=== PATIENT | male | born 1950 | race Caucasian/White ===

== ENCOUNTER 2022-01-13 21:50 | Emergency (ER) | payer MEDICARE, OTHER ==
[2022-01-13] MEDS ORDERED: hydrALAZINE 20 MG/ML SDV IM STA (22:26)
[2022-01-13] MEDS ORDERED: cloNIDine 0.1 MG Tab PO STA (23:29)
[2022-01-13] MEDS ORDERED: amLODIPine 10 MG Tab PO STA (23:29)
[2022-01-13] MEDS ORDERED: Ondansetron 4 MG Tab.DIS PO STA (23:38)
[2022-01-13] MEDS ORDERED: Carvedilol 3.125 MG Tab PO ONE (23:56)
[2022-01-14] MEDS ORDERED: LORazepam 0.5 MG Tab PO STA (00:24)
== END 2022-01-14 01:10 | disposition home or self-care (01) ==
LOC: FB.ED 21:50
DX: I12.0 Hypertensive chronic kidney disease with stage 5 chronic kidney disease or end stage renal disease (principal); N18.6 End stage renal disease; D63.1 Anemia in chronic kidney disease; E78.00 Pure hypercholesterolemia, unspecified; Z79.82 Long term (current) use of aspirin; Z79.899 Other long term (current) drug therapy; Z99.2 Dependence on renal dialysis
CPT/HCPCS: 36415; 80053; 85025; 96372; 99283; 99284; A9270-GY; J0360; Q0162

== ENCOUNTER 2022-05-12 19:39 | Emergency (ER) | payer MEDICARE, OTHER ==
[2022-05-12] MEDS ORDERED: Sodium Chloride 0.9% 10 ML Syringe FLUSH PRN (20:19)
[2022-05-12 20:44] LABS: ESTIMATED GFR 14 mL/min (>60)
[2022-05-12] MEDS ORDERED: Sodium Chloride 0.9% 1,000 ML IV SCH (21:45)
== END 2022-05-12 23:30 ==
LOC: FB.ED 19:39
DX: R55 Syncope and collapse (principal); I13.2 Hypertensive heart and chronic kidney disease with heart failure and with stage 5 chronic kidney disease, or end stage renal disease; I50.9 Heart failure, unspecified; N18.6 End stage renal disease; E86.0 Dehydration; Z79.899 Other long term (current) drug therapy; Z79.82 Long term (current) use of aspirin; Z20.822 Contact with and (suspected) exposure to COVID-19
CPT/HCPCS: 70450; 71045; 80053; 83880; 84484; 85025; 93005; 96360; 99285; J7030; U0002

== ENCOUNTER 2023-10-08 23:57 | Emergency (ER) | payer OTHER, MEDICARE ==
[2023-10-09] MEDS ORDERED: Sodium Chloride 0.9% 1,000 ML IV SCH (00:15)
[2023-10-09 00:31] LABS: BASOPHILS ABSOLUTE AUTO 0.1 x10-3/uL (0.0-0.3); EOSINOPHILS ABSOLUTE AUTO 0.3 x10-3/uL (0.0-0.6); EOSINOPHILS PERCENT AUTO 6.4 % (0.1-6.8); HEMATOCRIT 24.8 % (38.3-50.1); HEMOGLOBIN 8.5 g/dL (12.9-17.7); LYMPHOCYTES ABSOLUTE AUTO 1.7 x10-3/uL (0.5-4.5); LYMPHOCYTES PERCENT AUTO 34.2 % (15.8-45.3); MEAN CORPUSCULAR HEMOGLOBIN 34.4 pg (27.0-33.3); MEAN CORPUSCULAR HGB CONC 34.5 g/dL (28.7-35.3); MEAN CORPUSCULAR VOLUME 99.6 fL (80.8-98.7); MEAN PLATELET VOLUME 8.7 fL (6.7-11.0); MONOCYTES ABSOLUTE AUTO 0.7 x10-3/uL (0.0-1.2); MONOCYTES PERCENT AUTO 14.2 % (5.5-15.2); NEUTROPHILS ABSOLUTE AUTO 2.2 x10-3/uL (1.7-6.9); NEUTROPHILS PERCENT AUTO 44.2 % (40.3-71.8); PLATELET COUNT,PLT 183 x10(3)uL (117-477); RED BLOOD CELL COUNT 2.49 x10(6)uL (3.90-5.90); RED CELL DISTRIBUTION WIDTH 16.7 % (12.4-15.0); WHITE BLOOD CELL COUNT,WBC 4.9 x10-3/uL (3.2-10.1)
[2023-10-09 00:49] LABS: A/G RATIO 0.9; ALANINE AMINOTRANSFERASE,ALT 19 U/L (12-36); ALBUMIN 3.3 g/dL (3.2-4.6); ALKALINE PHOSPHATASE 64 IU/L (56-112); ASPARTATE AMNIOTRANSFERASE,AST 9 IU/L (5-25); BILIRUBIN TOTAL 0.7 mg/dL (0.1-1.3); BLOOD UREA NITROGEN,BUN 37 mg/dL (7-18); BUN/CREATININE RATIO 5.1 (9-20); CALCIUM 10.1 mg/dL (8.6-10.2); CARBON DIOXIDE,CO2 33 mmol/L (21-32); CHLORIDE,CL 100 mmol/L (100-110); ESTIMATED GFR 7 mL/min (>60); GLUCOSE RANDOM 93 mg/dL (80-116); PROTEIN TOTAL,TP 6.8 g/dL (6.0-8.0); SODIUM,NA 138 mmol/L (135-145)
[2023-10-09 00:50] LABS: CREATININE 7.3 mg/dL (0.70-1.30)
[2023-10-09] MEDS ORDERED: Meclizine 25 MG Tab PO ONE (00:51)
== END 2023-10-09 02:02 | disposition home or self-care (01) ==
LOC: FB.ED 23:57
DX: E86.0 Dehydration (principal); I13.2 Hypertensive heart and chronic kidney disease with heart failure and with stage 5 chronic kidney disease, or end stage renal disease; I50.9 Heart failure, unspecified; N18.6 End stage renal disease; Z99.2 Dependence on renal dialysis; D63.1 Anemia in chronic kidney disease; Z79.82 Long term (current) use of aspirin; Z79.899 Other long term (current) drug therapy
CPT/HCPCS: 80053; 85025; 96360; 96361; 99284-25; A9270-GY; J7030

== ENCOUNTER 2023-11-03 15:35 | Emergency (ER) | payer OTHER, MEDICARE ==
[2023-11-03] MEDS ORDERED: Ondansetron 4 MG Tab.DIS PO ONE ×2 (15:36→18:26)
[2023-11-03] MEDS ORDERED: Lactulose Soln 10 GM/15 ML 30 ML UD Cup PO ONE (18:12)
[2023-11-03] MEDS ORDERED: Sennosides/Docusate Sodium 50-8.6 MG Tab PO ONE (18:12)
[2023-11-03] MEDS ORDERED: Polyethylene Glycol 3350 Powder 238 GM Bot PO ONE (18:12)
[2023-11-03] MEDS ORDERED: Lactulose Soln 10 GM/15 ML 15 ML UD Cup PO ONE (18:12)
== END 2023-11-03 19:00 | disposition home or self-care (01) ==
LOC: FB.ED 15:35
DX: K59.00 Constipation, unspecified (principal); I10 Essential (primary) hypertension; E78.00 Pure hypercholesterolemia, unspecified; Z79.82 Long term (current) use of aspirin; Z79.899 Other long term (current) drug therapy
CPT/HCPCS: 74019; 99283; A9270-GY; Q0162

== ENCOUNTER 2024-05-22 17:49 | Emergency (ER) | payer OTHER, MEDICARE ==
[2024-05-22] MEDS ORDERED: Sodium Chloride 0.9% 10 ML Syringe FLUSH PRN (18:14)
[2024-05-22] MEDS: Lactated Ringers 500 ML IV STA (18:20)
[2024-05-22 18:38] LABS: BASOPHILS ABSOLUTE AUTO 0.1 x10-3/uL (0.0-0.3); BASOPHILS PERCENT AUTO 0.7 % (0.3-3.8); EOSINOPHILS ABSOLUTE AUTO 0.3 x10-3/uL (0.0-0.6); EOSINOPHILS PERCENT AUTO 3.8 % (0.1-6.8); HEMATOCRIT 30.1 % (38.3-50.1); HEMOGLOBIN 10.5 g/dL (12.9-17.7); LYMPHOCYTES ABSOLUTE AUTO 1.5 x10-3/uL (0.5-4.5); LYMPHOCYTES PERCENT AUTO 19.4 % (15.8-45.3); MEAN CORPUSCULAR HEMOGLOBIN 33.3 pg (27.0-33.3); MEAN CORPUSCULAR HGB CONC 34.9 g/dL (28.7-35.3); MEAN CORPUSCULAR VOLUME 95.3 fL (80.8-98.7); MEAN PLATELET VOLUME 8.4 fL (6.7-11.0); MONOCYTES ABSOLUTE AUTO 0.9 x10-3/uL (0.0-1.2); MONOCYTES PERCENT AUTO 11.6 % (5.5-15.2); NEUTROPHILS ABSOLUTE AUTO 4.9 x10-3/uL (1.7-6.9); NEUTROPHILS PERCENT AUTO 64.5 % (40.3-71.8); PLATELET COUNT,PLT 192 x10(3)uL (117-477); RED BLOOD CELL COUNT 3.15 x10(6)uL (3.90-5.90); WHITE BLOOD CELL COUNT,WBC 7.5 x10-3/uL (3.2-10.1)
[2024-05-22 18:44] LABS: BLOOD UREA NITROGEN,BUN 22 mg/dL (7-18); BUN/CREATININE RATIO 4.8 (9-20); CALCIUM 8.9 mg/dL (8.6-10.2); CARBON DIOXIDE,CO2 34 mmol/L (21-32); CHLORIDE,CL 98 mmol/L (100-110); EST CRCL DRUG DOSING (CG) 14.83 mL/min; ESTIMATED GFR 13 mL/min (>60); GLUCOSE RANDOM 99 mg/dL (80-116); POTASSIUM,K 3.6 mmol/L (3.5-5.3); SODIUM,NA 140 mmol/L (135-145)
[2024-05-22] MEDS: traMADol 50 MG Tab PO ONE (18:44)
[2024-05-22 18:46] LABS: CREATININE 4.6 mg/dL (0.70-1.30)
[2024-05-22] MEDS ORDERED: fentaNYL 100 MCG/2 ML SDV IVPUSH PRN (19:12)
[2024-05-22] MEDS ORDERED: Naloxone 0.4 MG/ML SDV IVPUSH PRN (19:12)
[2024-05-22] MEDS: Ondansetron 4 MG/2 ML SDV IVPUSH ONE (19:45)
== END 2024-05-22 21:30 | disposition home or self-care (01) ==
LOC: FB.ED 17:49
DX: G44.209 Tension-type headache, unspecified, not intractable (principal); E86.0 Dehydration; I10 Essential (primary) hypertension; E78.00 Pure hypercholesterolemia, unspecified; Z79.899 Other long term (current) drug therapy; Z79.82 Long term (current) use of aspirin
CPT/HCPCS: 36415; 80048; 85025; 96361; 96374; 99284; A9270; J2405; J7120